=== PATIENT | male | born 1990 | race Two or more races ===

== ENCOUNTER 2023-01-31 05:18 | Emergency (ER) | payer SELFPAY ==
[2023-01-31 05:33] VITALS: BP 140/90; PULSE 89; RESP 16; TEMP 36.7; O2SAT 96; BMI 50.2
--- NOTE | 2023-01-31 05:51 | CT_ITS ---
[address] [address] Patient Name: LOLA DENT MRN: [id number] date: 1990 Sex: M Assigned Patient Location: ER Current Patient Location: Accession/Order Number: [id number] Exam Date: 01/31/2023 06:00 Report Date: 01/31/2023 06:42 At the request of: ANNA CHANEY Procedure: CT abdomen pelvis wo con EXAMINATION: CT abdomen pelvis wo con HISTORY: left flank pain, r/o stone ; acute left flank pain, nausea and vomiting COMPARISON: No relevant comparison available. TECHNIQUE: Axial, Coronal, and Sagittal images were obtained without and/or with IV contrast as indicated by examination type. Dose reduction techniques were achieved by using automated exposure control and/or adjustment of mA and/or kV according to patient size and/or use of iterative reconstruction technique. FINDINGS: LUNG BASES: No visible pulmonary or pleural disease. LIVER: No enlargement, atrophy, suspicious density, or significant focal lesion. BILIARY: No dilatation or calcification. PANCREAS: No lesion, fluid collection, or abnormal duct dilatation. SPLEEN: No enlargement or focal lesion. ADRENALS: No mass or enlargement. KIDNEYS: No mass, obstruction, or calcification. BOWEL/MESENTERY: No visible mass, obstruction, or bowel wall thickening. AORTA/VASCULAR: No aneurysm or dissection. RETROPERITONEUM: No mass or adenopathy. LYMPH NODES: No adenopathy. URINARY BLADDER: 3 mm stone within urinary bladder. PELVIC ORGANS: No visible mass. Pelvic organs appropriate for patient age. ABDOMINAL WALL: No mass or hernia. BONES: No bony lesion or fracture. OTHER: Negative. CT/CT abdomen pelvis wo con IMPRESSION: 1. Within the urinary bladder is a 3 mm stone; possibly recent passage through the ureter. 2. Unremarkable kidneys and ureters. 3. Unremarkable bowel and appendix. Electronically authenticated by: CAROLINE KENDRICK Date: 01/31/2023 06:42
--- NOTE | 2023-01-31 05:52 | ED.GENADUL1 ---
HPI - General Adult General Chief complaint: Back Pain/Injury Stated complaint: RIGHT LOWER BACK PAIN Time Seen by Provider: 01/31/23 05:48 History of Present Illness HPI narrative: 32-year-old male presents for left lower back pain. He was laying on the couch and it started spontaneously. There is no injury or unusual activity. He points to the left flank and to the left lateral abdomen to indicate area of pain. No pain on the right. No dysuria or hematuria and the pain has greatly subsided now. He has no history of kidney stone. Related Data Home Medications Medication Instructions Recorded Confirmed fluoxetine 10 mg capsule mg 01/31/23 sumatriptan succinate 50 mg tablet mg PO 01/31/23 topiramate 25 mg tablet mg 01/31/23 Allergies Allergy/AdvReac Type Severity Reaction Status Date / Time bananas Allergy Severe Uncoded 01/31/23 05:37 Review of Systems ROS Narrative A ten point review of systems is negative except as noted above. PFSH PFSH Social History Smoking status: Current some day smoker Exam Narrative Exam Narrative: Nurses note and vital signs reviewed and patient is not hypoxic. General: The patient appears well and in no apparent distress. Patient is resting comfortably on cart. Skin: Warm, dry, no pallor noted. There is no rash noted. Head: Normocephalic, atraumatic Eye: Normal conjunctiva, no drainage Ears, Nose, Mouth, and Throat: oral mucosa is moist. Nares patent. Cardiovascular: Regular Rate and Rhythm Respiratory: Patient is in no distress, no accessory muscle use, lungs are clear to auscultation, no wheezing, rales or rhonchi Back: non-tender, no CVA tenderness bilaterally to percussion. no bruise or rash on his back. GI: obese and nontender Musculoskeletal: The patient has no evidence of calf tenderness, no pitting edema, symmetrical pulses noted bilaterally Neurological: A&O, normal speech Psychiatric: Cooperative Constitutional Vital Signs, click to edit/add: Last Vital Signs Temp 98.1 F 01/31/23 05:33 Pulse 89 01/31/23 05:33 Resp 16 01/31/23 05:33 BP 140/90 01/31/23 05:33 Pulse Ox 96 01/31/23 05:33 Course Vital Signs Vital signs: Vital Signs Temperature 98.1 F 01/31/23 05:33 Pulse Rate 89 1202/23 05:33 Respiratory Rate 16 01/31/23 05:33 Blood Pressure 140/90 01/31/23 05:33 Pulse Oximetry 96 01/31/23 05:33 Temperature 98.1 F 01/31/23 05:33 Pulse Rate 89 01/31/23 05:33 Respiratory Rate 16 01/31/23 05:33 Blood Pressure 140/90 01/31/23 05:33 Pulse Oximetry 96 01/31/23 05:33 Medical Decision Making MDM Narrative Medical decision making narrative: 3 mm stone is identified in his urinary bladder. He is able to be discharged home and was given a urine strainer and a specimen cup and referred to urology. Treatment diagnosis and follow-up were discussed with the patient. Differential Diagnosis Differential Diagnosis: kidney stone, hydronephrosis Imaging Data CT scan - abdomen: Radiologist's impression: Procedure: CT abdomen pelvis wo con EXAMINATION: CT abdomen pelvis wo con HISTORY: left flank pain, r/o stone ; acute left flank pain, nausea and vomiting COMPARISON: No relevant comparison available. TECHNIQUE: Axial, Coronal, and Sagittal images were obtained without and/or with IV contrast as indicated by examination type. Dose reduction techniques were achieved by using automated exposure control and/or adjustment of mA and/or kV according to patient size and/or use of iterative reconstruction technique. FINDINGS: LUNG BASES: No visible pulmonary or pleural disease. LIVER: No enlargement, atrophy, suspicious density, or significant focal lesion. BILIARY: No dilatation or calcification. PANCREAS: No lesion, fluid collection, or abnormal duct dilatation. SPLEEN: No enlargement or focal lesion. ADRENALS: No mass or enlargement. KIDNEYS: No mass, obstruction, or calcification. BOWEL/MESENTERY: No visible mass, obstruction, or bowel wall thickening. AORTA/VASCULAR: No aneurysm or dissection. RETROPERITONEUM: No mass or adenopathy. LYMPH NODES: No adenopathy. URINARY BLADDER: 3 mm stone within urinary bladder. PELVIC ORGANS: No visible mass. Pelvic organs appropriate for patient age. ABDOMINAL WALL: No mass or hernia. BONES: No bony lesion or fracture. OTHER: Negative. IMPRESSION: 1. Within the urinary bladder is a 3 mm stone; possibly recent passage through the ureter. 2. Unremarkable kidneys and ureters. 3. Unremarkable bowel and appendix. Electronically authenticated by: CAROLINE KENDRICK Date: 01/31/2023 06:42 Discharge Plan Discharge Chief Complaint: Back Pain/Injury Clinical Impression: Kidney stone Patient Disposition: Home, Self-Care Time of Disposition Decision: 06:49 Condition: Good Mode of Transportation: Private Vehicle Prescriptions / Home Meds: No Action sumatriptan succinate 50 mg tablet PO topiramate 25 mg tablet fluoxetine 10 mg capsule Instructions: Kidney Stones (ED) Additional Instructions: Follow-up with Dr. Lynn Stand Alone Forms: Portal Instructions Referrals: Mindi Jorgensen NP [Primary Care Provider] - 1 week
== END 2023-01-31 07:17 | disposition home or self-care (01) ==
PROVIDERS: Emergency Provider Emergency Medicine; PCP Nurse Practitioner
DX: N20.0 Calculus of kidney (principal); Z79.899 Other long term (current) drug therapy; F17.210 Nicotine dependence, cigarettes, uncomplicated
CPT/HCPCS: 74176; 81001; 99284

== ENCOUNTER 2023-07-21 21:01 | Emergency (ER) | payer SELFPAY ==
[2023-07-21 21:05] VITALS: BP 149/98; PULSE 104; TEMP 36.7; O2SAT 98; BMI 48.8
--- OUTSIDE RECORDS SUMMARY | 2023-07-21 21:08 | XMS_ITS | CCD ---
Author Organization [facility] Care Team Providers Care Client Experience Specialist Name Role Phone TIM, DR YAÑEZ Primary Care Unavailable JOSE COX Admitting Unavailable JOSE COX Attending Unavailable CRISTOBAL SCHMITT Consulting Unavailable TIM, DR YAÑEZ Primary Care Unavailable PAY, DR DAVIS Admitting Unavailable PAY, DR DAVIS Attending Unavailable ZIEBER, DR CAROLINE Lake Consulting Unavailable PAY, DR DAVIS Consulting Unavailable CRISTOBAL OSBORNE Consulting Unavailable JOSE COX Admitting Unavailable JOSE COX Attending Unavailable TIM, DR YAÑEZ Primary Care Unavailable CRISTOBAL SCHMITT Consulting Unavailable Lora Bermeo Unavailable PEÑA CHOU Attending Unavailable Bin Dumont Primary Care Unavailable Lora Bermeo Attending Unavailable Lora Bermeo Admitting Unavailable Medications Current Medications Medication Drug Class(es) Dates Sig (Normalized) Sig (Original) FLUoxetine 10 mg oral capsule (1 source) Serotonin Reuptake Inhibitor FLUoxetine HCl 10 MG Oral for 30 Days Active SUMAtriptan 50 mg oral tablet (1 source) Serotonin-1b and Serotonin-1d Receptor Agonist SUMAtriptan Succinat e 50 MG Oral for 30 Days Active topiramate 25 mg oral tablet (1 source) Topiramate 25 MG Oral for 30 Days Active Completed/Discontinued Medications Medication Drug Class(es) Dates Sig (Normalized) Sig (Original) ondansetron 4 mg oral tablet (2 sources) Serotonin-3 Receptor Antagonist Start: 2021 take 1 tablet by mouth three times daily as needed for nausea Zofran 4 MG 1 tablet Orally 3 times a day prn As needed nausea Aug, Not-Taking/PRN Problems Active Problems Problem Classification Problem Date Documented Da te Episodic/Chronic Other ear and sense organ disorders (1 source) Other otitis externa, right ear; Translations: [OTHER OTITIS EXTERNA RIGHT EAR] Onset: 10-09-2020 Chronic Sprains and strains (1 source) Strain of unspecified muscle, fascia and tendon at shoulder and upper arm level, left arm, initial encounter Episodic Unclassified (1 source) Pain in left shoulder; Translations: [Pain in left shoulder] Onset: 03-27-2023 Past or Other Problems Problem Classification Problem Date Documented Da te Episodic/Chronic Immunizations and screening for infectious disease (1 source) Contact with and (suspected) exposure to other viral communicable diseases Onset: 2021 Resolved: 2021 Episodic Nausea and vomiting (1 source) Nausea with vomiting, unspecified Onset: 2021 Resolved: 2021 Episodic Other ear and sense organ disorders (4 sources) Otalgia, right ear; Translations: [OTALGIA RIGHT EAR] Onset: 10-07-2020 Episodic Other ear and sense organ disorders (1 source) Unspecified acute noninfective otitis externa, right ear; Translations: [UNS AC NONINFECT OTITIS EXTERNA RT] Onset: 10-09-2020 Episodic Other gastrointestinal disorders (1 source) Diarrhea, unspecified Onset: 2021 Resolved: 2021 Episodic Other nervous system disorders (1 source) Atypical facial pain; Translations: [ATYPICAL FACIAL PAIN] Onset: 10-09-2020 Episodic Results Test Name Value Interpretation Reference Range Facil ity XR shoulder LT min 2V*on XR shoulder LT min 2V* [facility] [place] [address] XRay Report Signed Patient: Benji Cox V MR#: [id number] : 1990 Acct:[id number] Age/Sex: 32 / M ADM Date: 03/27/23 Loc: XDUCLY Room: Type: [facility] Attending Dr: Lora ZAVALA Copies to: SALLY Nye Ordering Provider: SALLY Nye Date of Service: 03/27/23 XR/XR shoulder LT min 2V*: LEFT SHOULDER PAIN XR shoulder LT min 2V* 03/27/2023 12:21 PM SIGNS AND SYMPTOMS: Pain in left shoulder PROTOCOL: Frontal, Grashey, and scapular Y views of the left shoulder COMPARISON: None FINDINGS: Glenohumeral joint and acromioclavicular joint are preserved. There is no evidence of fracture or dislocation. The visualized left hemithorax is grossly intact. XR/XR shoulder LT min 2V* IMPRESSION: No fracture, dislocation, or significant degenerative change. Impression dictated by: Elieser Benitez M.D.03/27/2023 12:49 PM Dictation Location: [place] [address] Transcribed By: [facility] 03/27/23 1249 Dictated By: Elieser Benitez II, MD 03/27/23 124 Signed By: 03/27/23 124 [facility] COVID Quick Testingon 2021 Result Negative [facility] Other CT FOOT LT WO CONon 05-23-19 CT FOOT LT WO CON EXAMINATION: CT FOOT LT WO CON HISTORY: Injury of foot ; acute left calcaneal pain after falling COMPARISON: No relevant comparison available. TECHNIQUE: Multi-planar CT images were created without IV contrast. Dose reduction techniques were achieved by using automated exposure control and/or adjustment of mA and/or kV according to patient size and/or use of iterative reconstruction technique. FINDINGS: BONES: Fracture of the calcaneal plantar spur with mild cephalad angulation of the tip. No fracture of the body of the calcaneus or remainder of the foot. No dislocation or bone lesion. SOFT TISSUES: No visible soft tissue swelling. EFFUSION: None visible. OTHER: Negative. IMPRESSION: 1. Minimally displaced fracture of the calcaneal plantar spur. No fracture of the calcaneus itself. 2. No appreciable significant soft tissue swelling or disruption of the plantar aponeurosis. Electronically authenticated by: CAROLINE KENDRICK Date: 2021-05-22 14:52 Normal [facility] Vital Signs Date Time Vital Sign Value Performing Clinician Facility 03-27-2023 11:30-0500 Body height 181.61 cm Lora Jiménezmond Other [facility] Other 03-27-2023 11:30-0500 Body mass index (BMI) [Ratio] 51.15 kg/m2 Lora Elvie Other [facility] Other 03-27-2023 11:30-0500 Body temperature 98.4 [degF] Lora Elvie Other [facility] Other 03-27-2023 11:30-0500 Body weight 168.74 kg Lora Elvie Other [facility] Other 03-27-2023 11:30-0500 Respiratory rate 18 /min Lora Elvie Other [facility] Other 03-27-2023 11:30-0500 SaO2% (BldA) [Mass fraction] 96 % Lora Elvie Other [facility] Other 2021 13:30-0400 Body height 180.34 cm Lora Elvie Other [facility] Other 2021 13:30-0400 Body mass index (BMI) [Ratio] 44.63 kg/m2 Lora Elvie Other [facility] Other 2021 13:30-0400 Body temperature 98.1 [degF] Lora Elvie Other [facility] Other 2021 13:30-0400 Body weight 145.15 kg Lora Elvie Other [facility] Other 2021 13:30-0400 Respiratory rate 18 /min Lora Elvie Other [facility] Other 2021 13:30-0400 SaO2% (BldA) [Mass fraction] 96 % Lora Bermeo Other [facility] Other Encounters Encounter Date Encounter Type Care Provider Facility Start: 03-27-2023 End: 03-27-2023 ambulatory Bin Dumont Facility:[facility] Start: 03-27-2023 Office outpatient visit 15 minutes Lora Bermeo [facility] Start: 02-11-2023 End: 02-11-2023 ambulatory PEÑA CHOU Not Available Start: 2021 End: 2021 ambulatory Lora Bermeo Other [facility] Other Start: 2021 Office outpatient visit 25 minutes Lora Bermeo [facility] Start: 05-22-2021 End: 05-22-[address] BIN DUMONT Facility:[facility] Start: 10-07-2020 End: 10-07-[address] BIN DUMONT Facility:[facility] Start: 10-05-2020 End: 10-05-2020 ambulatory JOSE COX Facility:[facility] Payers Date Payer Category Payer Private Health Insurance [id number] 2022 Private Health Insurance [id number] 1990 Unknown [id number] 1990 Unknown [id number] 1990 Unknown [id number] [id number] 1990 Unknown [id number] 1959 Self-pay 1959 Unknown [id number] [facility] [id number] Unknown [id number] [id number] Social History Date Type Detail Facility Sex Assigned At [facility] Other Evaluation note 03-27-2023 Note Date & Type Note Facility 03-27-2023 Evaluation note Encounter Date Diagnosis Assessment Notes Mar, Strain of left shoulder, initial encounter (ICD-10 - S46.912A) Take Tylenol or Motrin as needed for pain. Ice to your shoulder 2-3 times a day. Rest your shoulder. Wear sling for no more than 2 days for comfort and support. Follow-up with your primary care physician or orthopedic physician if no improvement in 5 to 7 days. [facility] Other Evaluation note 2021 Note Date & Type Note Facility 2021 Evaluation note Encounter Date Diagnosis Assessment Notes Aug, Contact with and (suspected) exposure to other viral communicable diseases (ICD-10 - Z20.828) Aug, Nausea and vomiting, unspecified vomiting type (ICD-10 - R11.2) Nausea and vomiting: adult material was printed Drink plenty fluids, get plenty of rest. Take Zofran as needed for nausea and vomiting. Consider taking [id number] nter Imodium as needed for diarrhea. Follow-up with your family physician if no improvement in 2 to 3 days. Off work today and tomorrow Aug, Diarrhea, unspecified type (ICD-10 - R19.7) [facility] Other Clinical Note 05-22-2021 Note Date & Type Note Facility 05-22-2021 Note PROCEDURE: XR FOOT L T MIN 3 VIEWS HISTORY: Injury of foot ; acute left calcaneus pain after falling COMPARISON: None. FINDINGS: BONES:Lucency at the base of the calcaneal plantar spur with the tip of a spur directed slightly cephalad. Unremarkable appearance of the remaining bones of the foot. SOFT TISSUES:No visible soft tissue swelling. EFFUSION:None visible. OTHER: Negative. IMPRESSION: 1. Suspect acute fracture of the calcaneal plantar spur. Electronically authenticated by: CAROLINE KENDRICK Date: 2021-05-22 13:53 [facility] History general Narrative - Reported Note Date & Type Note Facility History general Narrative - Reported Type Medical History Migraine headache [facility] Other Summary Purpose Family History No Family History Records FoundNo Family History Records FoundNo Family History Records Found Advance Directives No Advanced Directives Records FoundNo Advanced Directives Records FoundNo Advanced Directives Records Found Additional Source Comments (unrecognized sect ion and content) No Status Records FoundNo Status Records FoundNo Status Records Found INFORMATION SOURCE (unrecogn ized section and content) DATE CREATED AUTHOR 05/23/2021 [facility] DATE CREATED AUTHOR AUTHOR'S ORGANIZ ATION 02/13/[address] [facility] EPIC DATE CREATED AUTHOR AUTHOR'S ORGANIZ ATION 04/03/2023 [facility] REASON FOR VISIT (unrecogniz ed section and content) [employer], N/V, LOOSE S TOOL, FATIGUE, CHILLS, FEVERSHOULDER PAIN FOR RECORDS PERTAINING TO PATIENTS WHO ARE OR HAVE BEEN ENROLLED IN A CHEMICAL DEPENDENCY/SUBSTANCEABUSE PROGRAM, SOME INFORMATION MAY BE OMITTED. This clinical summary was aggregated from multiple sources. Caution should be exercised in using it in the provision of clinical care. This summary normalizes information from multiple sources, and as a consequence, information in this document may materially change the coding, format and clinical context of patient data. In addition, data may be omitted in some cases. CLINICAL DECISIONS SHOULD BE BASED ON THE PRIMARY CLINICAL RECORDS. [employer] provides no warranty or guarantee of the accuracy or completeness of information in this document.
--- NOTE | 2023-07-21 21:18 | ED.GENADUL1 ---
HPI HPI - General Adult General Chief complaint: Ear Stated complaint: Earache Time Seen by Provider: 07/21/23 21:09 Source: patient Mode of arrival: walk-in History of Present Illness HPI narrative: Patient is a 32-year-old male who presents to the emergency department for right ear pain. He was seen at urgent care yesterday and diagnosed with right otitis media. He was placed on amoxicillin and Ciprodex. He states today his pain is uncontrolled in the right side of the face radiating into the jaw. There has been no drainage from the ear. He has not had any fevers or vomiting. He has no other upper respiratory symptoms. There has been no purulence or Blood from the right external canal. He feels as though the right side of his face in front of the ear is swollen. Related Data Home Medications ?Medication ?Instructions ?Recorded ?Confirmed fluoxetine 10 mg capsule mg 01/31/23 sumatriptan succinate 50 mg tablet mg PO 01/31/23 topiramate 25 mg tablet mg 01/31/23 Previous Rx's ?Medication ?Instructions ?Recorded amoxicillin 875 mg-potassium 1 tab PO Q12H #20 tabs 07/21/23 clavulanate 125 mg tablet hydrocodone 5 mg-acetaminophen 325 1 tab PO Q6H PRN pain 3 days #12 07/21/23 mg tablet tabs ketorolac 10 mg tablet 10 mg PO TID PRN pain #10 tabs 07/21/23 Allergies Allergy/AdvReac Type Severity Reaction Status Date / Time bananas Allergy Severe Uncoded 01/31/23 05:37 Opioid HPI Opioid Management Most Recent Opioid Data: No Data to Display Review of Systems ROS Constitutional Denies: fever or chills Ears, nose, mouth, and throat Reports: ear pain; Denies: throat pain, ear discharge or nasal congestion Respiratory Denies: shortness of breath or cough Gastrointestinal Denies: nausea or vomiting Integumentary/Breast Denies: rash Hematologic/Lymphatic Denies: easy bruising or easy bleeding Allergic/Immunologic Denies: hives PFSH PFSH Social History Smoking status: Current some day smoker Exam Narrative Exam Narrative: Gen.: Awake, alert, in no distress Head: Normocephalic, atraumatic ENT: Moist mucous membranes, Right external canal is edematous with minimal drainage. TM is not visualized due to swelling in the right external canal. Right tragus is edematous. No other facial swelling noted.Left TM is clear Respiratory: No respiratory distress Extremities: Moves extremities equally Psych: Normal mood and affect Neuro: No focal neuro deficit Skin: Warm, dry, intact Constitutional Vital Signs, click to edit/add: Last Vital Signs Temp 98.1 F 07/21/23 21:05 Pulse 104 H 07/21/23 21:05 Resp 18 07/21/23 21:05 BP 149/98 H 07/21/23 21:05 Pulse Ox 98 07/21/23 21:05 O2 Del Method Room Air 07/21/23 21:05 Course Vital Signs Vital signs: Vital Signs Temperature 98.1 F 07/21/23 21:05 Pulse Rate 104 H 07/21/23 21:05 Respiratory Rate 18 07/21/23 21:05 Blood Pressure 149/98 H 07/21/23 21:05 Pulse Oximetry 98 07/21/23 21:05 Oxygen Delivery Method Room Air 07/21/23 21:05 Temperature 98.1 F 07/21/23 21:05 Pulse Rate 104 H 07/21/23 21:05 Respiratory Rate 18 07/21/23 21:05 Blood Pressure 149/98 H 07/21/23 21:05 Pulse Oximetry 98 07/21/23 21:05 Oxygen Delivery Method Room Air 07/21/23 21:05 Medical Decision Making MDM Narrative Medical decision making narrative: Patient treated for pain with Bittinger and Toradol for home. Exam is consistent with right otitis externa and he is switched to Augmentin for better coverage as well as encouraged to use the Ciprodex drops more frequently. His exam is otherwise benign in the ER. Follow-up PCP and return to the ER if symptoms change or worsen Medical Records Medical records reviewed: Yes I reviewed the patient's medical records Discharge Plan Discharge Stand Alone Forms: Portal Instructions Chief Complaint: Ear Clinical Impression: Otitis externa, Earache on right Patient Disposition: Home, Self-Care Time of Disposition Decision: 21:15 Condition: Good Mode of Transportation: Private Vehicle Prescriptions / Home Meds: New hydrocodone-acetaminophen 5-325 mg tablet 1 tab PO Q6H PRN (Reason: pain) 3 Days Qty: 12 0RF Rx Instructions: DX: H92.01 ketorolac 10 mg tablet 10 mg PO TID PRN (Reason: pain) Qty: 10 0RF amoxicillin-pot clavulanate 875-125 mg tablet 1 tab PO Q12H Qty: 20 0RF No Action sumatriptan succinate 50 mg tablet PO topiramate 25 mg tablet fluoxetine 10 mg capsule Print Language: Kinyarwanda Instructions: Swimmer's Ear (ED), Earache (ED) Additional Instructions: Please stop amoxicillin and start augmentin; Bittinger and ketorolac for pain Please use CiproDex drops - 3 drops in right ear, 3 times a day for 7 days Referrals: Mindi Jorgensen [employer] [Primary Care Provider] - 1 week Discharge Date/Time: 07/21/23 21:33
[2023-07-21] MEDS: KETOROLAC TROMETHAMINE 10 MG TABLET PO (21:26)
[2023-07-21] MEDS: AMOXICILLIN/POTASSIUM CLAV 1 TAB TABLET PO (21:26)
[2023-07-21] MEDS: HYDROCODONE/ACET 5-325 MG TABLET 2 TAB PO (21:27)
--- NOTE | 2023-07-21 21:32 | PC.NURSE ---
dx w/ ear infection by urgent care and currently has ATB ear drops at home.
== END 2023-07-21 21:33 | disposition home or self-care (01) ==
PROVIDERS: Emergency Provider Internal Medicine; PCP Nurse Practitioner
DX: H60.91 Unspecified otitis externa, right ear (principal); H92.01 Otalgia, right ear; Z79.899 Other long term (current) drug therapy; F17.210 Nicotine dependence, cigarettes, uncomplicated
CPT/HCPCS: 99284

== ENCOUNTER 2024-05-17 08:09 | Emergency (ER) | payer OTHER, SELFPAY ==
[2024-05-17 08:14] VITALS: BP 144/85; PULSE 113; TEMP 38.1; O2SAT 96; BMI 50.9
[2024-05-17 08:15] VITALS: O2SAT 96
--- NOTE | 2024-05-17 08:24 | ED_ITS ---
HPI HPI - General Adult General Chief complaint: Upper Respiratory Infection Stated complaint: COUGHING FEVER CHILLS Time Seen by Provider: 05/17/24 08:17 Source: patient Mode of arrival: walk-in Limitations: no limitations History of Present Illness HPI narrative: The patient is coming to the ER with a cough that been going on at least for the last 2 weeks, he mentioned that [id number] medication did not help him, the patient also had his daughter at home was sick and taking antibiotic for possible infection as well although he did not specify which one it is, the patient denies any shortness of breath but he have cough that is nagging cough and that is most concerning. Congestion also another concern of the patient there is no nausea vomiting or any abdominal pain Related Data Home Medications ?Medication ?Instructions ?Recorded ?Confirmed fluoxetine 10 mg capsule mg 01/31/23 sumatriptan succinate 50 mg tablet mg PO 01/31/23 topiramate 25 mg tablet mg 01/31/23 Previous Rx's ?Medication ?Instructions ?Recorded amoxicillin 875 mg-potassium 1 tab PO Q12H #20 tabs 07/21/23 clavulanate 125 mg tablet hydrocodone 5 mg-acetaminophen 325 1 tab PO Q6H PRN pain 3 days #12 07/21/23 mg tablet tabs ketorolac 10 mg tablet 10 mg PO TID PRN pain #10 tabs 07/21/23 amoxicillin 875 mg-potassium 1 tab PO BID #14 tabs 05/17/24 clavulanate 125 mg tablet azithromycin 250 mg tablet See Rx Instructions PO .COMPLEX #6 05/17/24 (Zithromax Z-Ramu) tabs benzonatate 100 mg capsule 100 mg PO TID PRN cough #20 caps 05/17/24 prednisone 50 mg tablet 50 mg PO DAILY 5 days #5 tabs 05/17/24 Allergies Allergy/AdvReac Type Severity Reaction Status Date / Time bananas Allergy Severe Uncoded 01/31/23 05:37 Opioid HPI Opioid Management Most Recent Opioid Data: No Data to Display Review of Systems ROS Status of ROS 10 or more systems reviewed and unremark able except as noted in history and below PFSH PFSH Social History Smoking status: Current some day smoker Exam Narrative Exam Narrative: Nurses notes and vital signs reviewed and patient is not hypoxic. General: Well-appearing and in no apparent distress. Skin: Warm, dry, no pallor noted. No rash. Head: Normocephalic, atraumatic. Neck: Supple, non-tender. Eye: Pupils are equal, round and EOMI. No scleral icterus. Ears, Nose, Mouth, and Throat: TM are clear, no nasal mucosal hypertrophy. Oral mucosa is moist, no posterior oropharynx erythema, uvula is mid-line Cardiovascular: Regular Rate and Rhythm without murmur, gallop or rub. Respiratory: Rhonchi heard but no wheezing, there is distant airway on both sides of the lung Musculoskeletal: normal ROM, no calf or popliteal tenderness, no lower extremity edema/swelling GI: Abdomen is soft, non-distended. Normal bowel sounds. No masses appreciated. No tenderness to palpation. No rebound, guarding, or rigidity noted. Neurological: A&O x4. No cranial nerve dysfunction observed. No truncal ataxia. Moves all extremities. Sensation intact. Psychiatric: Cooperative and interactive. Normal mood and affect. Constitutional Vital Signs, click to edit/add: Last Vital Signs Temp 100.5 F H 05/17/24 08:14 Pulse 127 H 05/17/24 08:50 Resp 18 05/17/24 08:14 BP 144/85 H 05/17/24 08:14 Pulse Ox 97 05/17/24 08:50 O2 Del Method Room Air 05/17/24 08:50 Course Vital Signs Vital signs: Vital Signs Temperature 100.5 F H 05/17/24 08:14 Pulse Rate 113 H 05/17/24 08:14 Respiratory Rate 18 05/17/24 08:14 Blood Pressure 144/85 H 05/17/24 08:14 Pulse Oximetry 96 05/17/24 08:14 Oxygen Delivery Method Room Air 05/17/24 08:14 Temperature 100.5 F H 05/17/24 08:14 Pulse Rate 127 H 05/17/24 08:50 Respiratory Rate 18 05/17/24 08:14 Blood Pressure 144/85 H 05/17/24 08:14 Pulse Oximetry 97 05/17/24 08:50 Oxygen Delivery Method Room Air 05/17/24 08:50 Medical Decision Making MDM Narrative Medical decision making narrative: The patient presentation is highly suspicious of pneumonia especially with him not getting better for the last 2 weeks and started to have fever The patient chest x-ray although showing no acute pathology still not a good penetration and apparently with the patient morbidly obese having BMI of 50 chest x-ray I do not think will rule out pneumonia still at the clinically the patient presentation is highly suspicious of it The patient was treated in the ER with a breathing treatment improvement with coughing in addition to being discharged after being provided with prednisone He will be covered for community-acquired pneumonia with azithromycin and Augmentin The patient is to follow up with primary care physician in next 2-3 days or to return to the emergency department should any of the signs or symptoms worsen or new symptoms develop. The patient agrees with the following Diagnosis and Treatment plan and the patient will be discharged home. Discharge Plan Discharge Chief Complaint: Upper Respiratory Infection Clinical Impression: Pneumonia Patient Disposition: Home, Self-Care Time of Disposition Decision: 08:47 Condition: Good Prescriptions / Home Meds: New prednisone 50 mg tablet 50 mg PO DAILY 5 Days Qty: 5 0RF benzonatate 100 mg capsule 100 mg PO TID PRN (Reason: cough) Qty: 20 0RF azithromycin [Zithromax Z-Ramu] 250 mg tablet See Rx Instructions .ROUTE .COMPLEX Qty: 6 0RF Rx Instructions: For 250 mg dose pack: take 500 mg today (day 1), then 250 mg for 4 days (days 2-5) amoxicillin-pot clavulanate 875-125 mg tablet 1 tab PO BID Qty: 14 0RF No Action sumatriptan succinate 50 mg tablet PO topiramate 25 mg tablet fluoxetine 10 mg capsule hydrocodone-acetaminophen 5-325 mg tablet 1 tab PO Q6H PRN (Reason: pain) 3 Days Qty: 12 0RF Rx Instructions: DX: H92.01 ketorolac 10 mg tablet 10 mg PO TID PRN (Reason: pain) Qty: 10 0RF amoxicillin-pot clavulanate 875-125 mg tablet 1 tab PO Q12H Qty: 20 0RF Print Language: Swedish Instructions: Community Acquired Pneumonia (DC) Referrals: Mindi Jorgensen, [facility] [Primary Care Provider] - 1 week
[2024-05-17] MEDS: PREDNISONE 20 MG TABLET 40 MG PO (08:38)
[2024-05-17] MEDS: AZITHROMYCIN 250 MG TABLET 500 MG PO (08:41)
[2024-05-17] MEDS: IPRATROPIUM/ALBUTEROL SULFATE 3 ML AMPUL.NEB IH (08:49)
[2024-05-17 08:50] VITALS: PULSE 127; O2SAT 97
== END 2024-05-17 09:01 | disposition home or self-care (01) ==
PROVIDERS: Emergency Provider Emergency Medicine; PCP Nurse Practitioner
DX: J18.9 Pneumonia, unspecified organism (principal); F17.200 Nicotine dependence, unspecified, uncomplicated; R50.9 Fever, unspecified
CPT/HCPCS: 71045; 94640; 99284; J7512

== ENCOUNTER 2024-05-20 08:13 | Emergency (ER) | payer OTHER, SELFPAY ==
[2024-05-20 08:16] VITALS: BP 145/91; PULSE 119; TEMP 37.3; O2SAT 97; BMI 50.2
--- NOTE | 2024-05-20 08:23 | ECG_ITS ---
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 Measurements Intervals [place] Rate: 113 P: -55 MD: 116 QRS: -58 QRSD: 96 T: -2 QT: 308 QTc: 375 Interpretive Statements Ectopic atrial tachycardia 2210 Short MD interval 2420 RSR (QR) in lead V1/V2, consistent with right ventricular conduction delay 2630 Left anterior fascicular block 4068 Nonspecific [place] abnormality 9150 abnormal ECG No previous ECG available for comparison Electronically Signed On 05-20-2024 17:38:29 EDT by ALEX PONCE M.D.
--- OUTSIDE RECORDS SUMMARY | 2024-05-20 08:37 | XMS_ITS | CCD ---
Author Organization [facility] CliniSyfl Care Team Providers Care Textile Broker Name Role Phone TIM, DR YAÑEZ Primary Care Unavailable JOSE COX Admitting Unavailable JOSE COX Attending Unavailable CRISTOBAL SCHMITT Consulting Unavailable TIM, DR YAÑEZ Primary Care Unavailable PAY, DR DAVIS Admitting Unavailable PAY, DR DAVIS Attending Unavailable ZIEBER, DR CAROLINE Lake Consulting Unavailable PAY, DR DAVIS Consulting Unavailable DYLON, CRISTOBAL PETERSON Consulting Unavailable JOSE COX Admitting Unavailable JOSE COX Attending Unavailable TIM, DR YAÑEZ Primary Care Unavailable CRISTOBAL SCHMITT Consulting Unavailable Lora Bermeo Unavailable MINDI JORGENSEN Attending Unavailable Bin Dumont Primary Care Unavailable Lora Bermeo Attending Unavailable Lora Bermeo Admitting Unavailable Joslyn WILLIAMSON, Mindi Unavailable Rick Villalobos MD Primary Care Provider MINDI JORGENSEN Primary Care Unavailable BONNY MINER Attending Unavailable Allergies Allergy Classification Reported Allergen(s) Allergy Type Date of Onset Reaction(s) Facility (3 sources) Other Propensity to adverse reactions 3 [facility] (1 source) Banana Extract Drug Allergy 5 Anaphylaxis [facility] Medications Current Medications Medication Drug Class(es) Dates Sig (Normalized) Sig (Original) [id number] 200 actuat albuterol 0.09 mg/actuat metered dose inhaler (3 sources) beta2-Adrenergic Agonist take 2 puff(s) by inhalation every six hours for wheezing albuterol HFA 90 mcg/act inhaler Inhale 2 puffs every 6 (six) hours if needed for wheezing Active amoxicillin 875 mg / clavulanate 125 mg oral tablet (1 source) Penicillin-class Antibacterial Start: 05-16-2024 take 1 tablet by mouth every twelve hours Amoxicillin-Pot Clavulanate 875-125 mg tablet Active 1 TAB PO Every 12 hours 19 12May 16, 2024 12:00am Atogepant (Qulipta) 60 MG tablet (2 sources) Start: 11-26-2023 take 1 tablet by mouth once daily Atogepant (Qulipta) 60 MG tablet Indications: Migraine without aura and without status migrainosus, not intractable (CMS/HCC) Take 60 mg by mouth Daily 30 tablet 2 11/26/2023 Active ubrogepant 100 mg oral tablet (4 sources) Start: 11-26-2023 End: 12-26-2023 take 2 tablets by mouth every twenty-four hours as needed Ubrogepant (Ubrelvy) 100 MG tablet Indications: Migraine without aura and without status migrainosus, not intractable (CMS/HCC) Take 100 mg by mouth Daily as needed (migraine BERG) May take 1 at onset of migraine BERG, may repeat again in 2 hours if needed. No more than 2 pills in 24 hours 15 tablet 1 11/26/2023 12/26/2023 Active End: 11-26-2023 take 1 tablet by mouth every twenty-four hours as needed Ubrogepant (Ubrelvy) 100 MG tablet Take 100 mg by mouth Daily as needed (migraine BERG) 11/26/2023 Discontinued (Reorder) Completed/Discontinued Medications Medication Drug Class(es) Dates Sig (Normalized) Sig (Original) amoxicillin 500 mg oral capsule (1 source) Penicillin-class Antibacterial Start: 07-20-2023 End: 05-16-2024 take 1 capsule by mouth three times daily Amoxicillin 500 mg capsule Discontinued 500 MG PO Three times daily 19 09July 20, 2023 12:00am May 16, 2024 2:00pm Ciprofloxacin-Dexa methasone 0.3-0.1 % drops,suspension (1 source) Start: 07-20-2023 End: 05-16-2024 Ciprofloxacin-Dexa methasone 0.3-0.1 % drops,suspension Discontinued 4 DROPS OTIC Twice daily 7.5 July 20, 2023 12:00am May 16, 2024 2:00pm FLUoxetine 10 mg oral capsule (4 sources) Serotonin Reuptake Inhibitor End: 11-26-2023 take 1 capsule by mouth in the morning FLUoxetine (PROzac) 10 MG capsule Take 10 mg by mouth in the morning. 11/26/2023 Discontinued (Therapy completed) ondansetron 4 mg oral tablet (2 sources) Serotonin-3 Receptor Antagonist Start: 2021 take 1 tablet by mouth three times daily as needed for nausea Zofran 4 MG 1 tablet Orally 3 times a day prn As needed nausea Aug, Not-Taking/PRN SUMAtriptan 50 mg oral tablet (6 sources) Serotonin-1b and Serotonin-1d Receptor Agonist Start: 07-20-2023 End: 05-16-2024 Sumatriptan Succinate 50 mg tablet Discontinued MG PO July 20, 2023 12:00am May 16, 2024 2:06pm FreeTextSig: Oral; Note: Source Status: Taking; Qty: 9 Tablet; Provider: Elvie Paulino ( ) Start: 07-20-2023 Sumatriptan Curran ccinate Active MG PO July 20, 2023 12:00am FreeTextSig: Oral; Note: Source Status: Taking; Qty: 9 Tablet; Provider: Elvie Paulino ( ) End: 11-26-2023 SUMAtriptan (Imitrex) 50 MG tablet Take 50 mg by mouth 1 (one) time if needed for migraine May repeat dose once in 2 hours if no relief. Do not exceed 2 doses in 24 hours. 11/26/2023 Discontinued (Therapy completed) SUMAtriptan Succ inate 50 MG Oral for 30 Days Active topiramate 25 mg oral tablet (6 sources) Start: 07-20-2023 End: 05-16-2024 Topiramate 25 mg tablet Discontinued MG PO July 20, 2023 12:00am May 16, 2024 2:06pm FreeTextSig: Oral; Note: Source Status: Taking; Qty: 60 Tablet; Provider: Elvie Paulino ( ) Start: 07-20-2023 Topiramate Act cristian MG PO July 20, 2023 12:00am FreeTextSig: Oral; Note: Source Status: Taking; Qty: 60 Tablet; Provider: Elvie Paulino ( ) Problems Active Problems Problem Classification Problem Date Documented Da te Episodic/Chronic Anxiety disorders (5 sources) Mixed anxiety and depressive disorder; Translations: [Anxiety disorder, unspecified] Onset: 02-09-2023 11-26-2023 Chronic Asthma (3 sources) Mild intermittent asthma; Translations: [Mild intermittent asthma, uncomplicated] Onset: 02-04-2023 02-04-2023 Chronic Headache; including migraine (5 sources) Migraine without aura, not refractory ; Translations: [Migraine without aura, not intractable, without status migrainosus] Onset: 02-09-2023 11-26-2023 Chronic Influenza (1 source) Influenza Onset: 02-23-2024 Other ear and sense organ disorders (1 source) Other otitis externa, right ear; Translations: [OTHER OTITIS EXTERNA RIGHT EAR] Onset: 10-09-2020 Chronic Other nutritional; endocrine; and metabolic disorders (5 sources) Obesity caused by energy imbalance; Translations: [Morbid (severe) obesity due to excess calories] Onset: 02-11-2023 11-26-2023 Chronic Other nutritional; endocrine; and metabolic disorders (5 sources) Body mass index 40+ - severely obese; Translations: [Body mass index (BMI) 50.0-59.9, adult] Onset: 11-26-2023 11-26-2023 Chronic Other nutritional; endocrine; and metabolic disorders (4 sources) Excessive thirst; Translations: [Polydipsia] Onset: 11-26-2023 11-26-2023 Episodic Otitis media and related conditions (1 source) Acute right otitis media; Translations: [Otitis media, unspecified, right ear] 07-20-2023 Episodic Residual codes; unclassified (5 sources) Tobacco user; Translations: [Tobacco use] Onset: 02-11-2023 11-26-2023 Episodic Sprains and strains (1 source) Strain of unspecified muscle, fascia and tendon at shoulder and upper arm level, left arm, initial encounter Episodic Unclassified (1 source) Pain in left shoulder; Translations: [Pain in left shoulder] Onset: 03-27-2023 Unclassified (1 source) Cold Like Symptoms Onset: 02-23-2024 Viral infection (1 source) COVID-19; Translations: [COVID-19] Onset: 02-23-2024 Past or Other Problems Problem Classification Problem Date Documented Da te Episodic/Chronic Calculus of urinary tract (3 sources) Kidney stone; Translations: [Calculus of kidney] Onset: 02-05-2023 02-05-2023 Episodic Immunizations and screening for infectious disease (1 source) Contact with and (suspected) exposure to other viral communicable diseases Onset: 2021 Resolved: 2021 Episodic Nausea and vomiting (1 source) Nausea with vomiting, unspecified Onset: 2021 Resolved: 2021 Episodic Other connective tissue disease (3 sources) Heel pain; Translations: [Pain in left foot] Onset: 02-11-2023 02-11-2023 Episodic Other ear and sense organ disorders (3 sources) Otitis externa; Translations: [Unspecified otitis externa, unspecified ear] Onset: 02-04-2023 Resolved: 02-11-2023 02-11-2023 Chronic Other ear and sense organ disorders (4 [...] Translations: [ATYPICAL FACIAL PAIN] Onset: 10-09-2020 Episodic Residual codes; unclassified (3 sources) History of clinical finding in subject; Translations: [Personal history of other specified conditions] Onset: 02-11-2023 Resolved: 02-11-2023 02-11-2023 Episodic Viral infection (3 sources) Disease caused by 2019-nCoV; Translations: [COVID-19] Onset: 02-11-2023 Resolved: 02-11-2023 02-11-2023 Episodic Results Test Name Value Interpretation Reference Range Facil ity SARS/FLU A+B/RSV by NAAT/Mol [facility] 02-23-2024 SARS/FLU A+B/RSV by NAAT/Molecular FLU A PCR Negative (qualifier value) FLU B PCR Negative (qualifier value) RSV by PCR Negative (qualifier value) SARS CoV 2 Detected (qualifier value) NOTE The Xpert Xpress SARS-CoV-2/Flu/RSV Plus test is a rapid, multiplexed real-time RT-PCR test intended for the simultaneous qualitative detection and differentiation of SARS-CoV-2, influenza A, influenza B and respiratory syncytial virus (RSV) viral RNA from individuals suspected of respiratory viral infection consistent with COVID-19 by their healthcare provider. This test has not been validated in asymptomatic patients. The Xpert Xpress SARS-CoV-2 test is intended for use by qualified and trained operators who are performing tests using either Dayjet DX or YouTab systems and is limited to laboratories that meet the CLIA requirements to perform high and moderate complexity tests. The Xpert Xpress SARS-CoV-2/Flu/RSV Plus is only for use under the Food and Drug Administration's Emergency Use Authorization. Results are for the simultaneous detection and differentiation of SARS-CoV-2, influenza A, influenza B and RSV nucleic acids in clinical specimens. SARS-CoV-2, influenza A, influenza B and RSV RNA identified by this test are generally detectable in upper respiratory samples during the acute phase of infection. Positive results are indicative of the presence of the identified virus, but do not rule out bacterial infection or co-infection with other pathogens not detected by this test. Clinical correlation with patient history and other diagnostic information is necessary to determine patient infection status. The agent detected may not be the definite cause of disease. Negative results do not preclude SARS-CoV-2, influenza A, influenza B and RSV infection and should not be used as the sole basis for treatment or other patient management decisions. Negative results must be combined with clinical observations, patient history and epidemiological information. An Invalid result may occur with specimen-associated inhibition unable to be resolved with specimen repeat. Fact Sheet for Healthcare Providers: https://www.fda.gov/med ia/677012/download Fact Sheet for Patients: https://www.fda.gov/med ia/083973/download Normal [facility] Comment on above: Performed By: #### COVFLR #### [facility] ([id number]) [address] [place] [address], [place] [address] XR shoulder LT min 2V*on XR shoulder LT min 2V* [facility] Main [employer] [address] [place] [address] XRay Report Signed Patient: Benji Cox V MR#: [id number] : 1990 Acct:[id number] Age/Sex: 32 / M ADM Date: 03/27/23 Loc: XDUCLY Room: Type: [facility] Attending Dr: Lora ZAVALA Copies to: SALLY [...] Elieser Benitez M.D.03/27/2023 12:49 PM Dictation Location: [place] [address] Transcribed By: [facility] 03/27/23 1249 Dictated By: Elieser Benitez II, MD 03/27/231245 Signed By: 03/27/23 1249 [facility] COVID Quick Testingon 2021 Result Negative [employer] Other CT FOOT LT WO CONon 05-23-19 [...] by: CAROLINE KENDRICK Date: 2021-05-22 14:52 Normal [facility] Vital Signs Date Time Vital Sign Value Performing Clinician Facility 05-16-2024 14:03-0400 Body height 182.88 cm [facility] 05-16-2024 14:03-0400 Body mass index (BMI) [Ratio] 51.4 kg/m2 [facility] 05-16-2024 14:03-0400 Body temperature 98 [degF] [facility] 05-16-2024 14:03-0400 Body weight 171.91 kg [facility] 05-16-2024 14:03-0400 Diastolic blood pressure 89 mm[Hg] [facility] 05-16-2024 14:03-0400 Heart rate 101 /min [facility] 05-16-2024 14:03-0400 Respiratory rate 16 /min [facility] 05-16-2024 14:03-0400 SaO2% (BldA) [Mass fraction] 95 % [facility] 05-16-2024 14:03-0400 Systolic blood pressure 132 mm[Hg] [facility] 11-26-2023 14:51-0400 Body height 180.3 cm Mindi Jorgensen HUMAN ANATOMY TEACHER Work Phone: [facility] 11-26-2023 14:51-0400 Body mass index (BMI) [Ratio] 50.38 kg/m2 Mindi Jorgensen HUMAN ANATOMY TEACHER Work Phone: [facility] 11-26-2023 14:51-0400 Body temperature 98.49 [degF] Mindi Jorgensen HUMAN ANATOMY TEACHER Work Phone: [facility] 11-26-2023 14:51-0400 Body weight 163.84 kg Mindi Jorgensen HUMAN ANATOMY TEACHER Work Phone: [facility] 11-26-2023 14:51-0400 Diastolic blood pressure 88 mm[Hg] Mindi Ramosholz HUMAN ANATOMY TEACHER Work Phone: [facility] 11-26-2023 14:51-0400 Heart rate 87 /min Mindilatosha Ramosholz HUMAN ANATOMY TEACHER Work Phone: [facility] 11-26-2023 14:51-0400 Respiratory rate 19 /min Mindilatosha Ramosholz HUMAN ANATOMY TEACHER Work Phone: [facility] 11-26-2023 14:51-0400 SaO2% (BldA) [Mass fraction] 96 % Mindilatosha Ramosholz HUMAN ANATOMY TEACHER Work Phone: [facility] 11-26-2023 14:51-0400 Systolic blood pressure 136 mm[Hg] Mindi Richardholz HUMAN ANATOMY TEACHER Work Phone: [facility] 07-20-2023 11:56-0400 Body height 181.61 cm [facility] 07-20-2023 11:56-0400 Body mass index (BMI) [Ratio] 51.8 kg/m2 [facility] 07-20-2023 11:56-0400 Body temperature 98.6 [degF] [facility] 07-20-2023 11:56-0400 Body weight 171 kg [facility] 07-20-2023 11:56-0400 Diastolic blood pressure 87 mm[Hg] [facility] 07-20-2023 11:56-0400 Heart rate 96 /min [facility] 07-20-2023 11:56-0400 Respiratory rate 18 /min [facility] 07-20-2023 11:56-0400 SaO2% (BldA) [Mass fraction] 96 % [facility] 07-20-2023 11:56-0400 Systolic blood pressure 136 mm[Hg] [facility] 03-27-2023 11:30-0500 Body height 181.61 cm Lora Bermeo Other [employer] Other 03-27-2023 11:30-0500 Body mass index (BMI) [Ratio] 51.15 kg/m2 Lora Elvie Other [employer] Other 03-27-2023 11:30-0500 Body temperature 98.4 [degF] Lora Elvie Other [employer] Other 03-27-2023 11:30-0500 Body weight 168.74 kg Lora Elvie Other [employer] Other 03-27-2023 11:30-0500 Respiratory rate 18 /min Lora Elvie Other [employer] Other 03-27-2023 11:30-0500 SaO2% (BldA) [Mass fraction] 96 % Lora Elvie Other [employer] Other 2021 13:30-0400 Body height 180.34 cm Lora Elvie Other [employer] Other 2021 13:30-0400 Body mass index (BMI) [Ratio] 44.63 kg/m2 Lora Elvie Other [employer] Other 2021 13:30-0400 Body temperature 98.1 [degF] Lora Elvie Other [employer] Other 2021 13:30-0400 Body weight 145.15 kg Lora Elvie Other [employer] Other 2021 13:30-0400 Respiratory rate 18 /min Lora Elvie Other [employer] Other 2021 13:30-0400 SaO2% (BldA) [Mass fraction] 96 % Lora Bermeo Other [employer] Other Encounters Encounter Date Encounter Type Care Provider Facility Start: 05-16-2024 End: 05-16-2024 ambulatory [facility] Work Phone: Start: 05-16-2024 End: 05-16-2024 Patient encounter procedure [facility] Work Phone: Start: 02-23-2024 End: 02-23-2024 Emergency department patient visit MINDI JORGENSEN [facility] Start: 11-26-2023 End: 11-26-2023 Office outpatient visit 25 minutes Mindi Jorgensen HUMAN ANATOMY TEACHER Work Phone: [facility] Comment on above: Migraine without aur a and without status migrainosus, not intractable (CMS/HCC) (Primary Dx); Morbid (severe) obesity due to excess calories (CMS/HCC); Body mass index (BMI) 50.0-59.9, adult (CMS/HCC); Anxiety and depression (CMS/HCC); Tobacco user; Polydipsia Start: 11-26-2023 End: 11-26-2023 Bamboo flowsheet Mindi Jorgensen HUMAN ANATOMY TEACHER Work Phone: [facility] Start: 11-26-2023 End: 11-26-2023 Bamboo flowsheet Mindi Jorgensen HUMAN ANATOMY TEACHER Work Phone: [facility] Start: 07-20-2023 End: 07-20-2023 ambulatory [facility] Work Phone: Start: 07-20-2023 End: 07-20-2023 Patient encounter procedure [facility] Work Phone: Start: 03-27-2023 End: 03-27-2023 ambulatory Bin Dumont Facility:[facility] Start: 03-27-2023 Office outpatient vi sit 15 minutes Lora Bermeo [facility] Start: 02-11-2023 End: 02-11-2023 ambulatory MINDI JORGENSEN Not Available Start: 2021 End: 2021 ambulatory Lora Elvie Other [employer] Other Start: 2021 Office outpatient vi sit 25 minutes Lora Bermeo [facility] Start: 05-22-2021 End: 05-22-[address] BIN DUMONT Facility:[facility] Start: 10-07-2020 End: 10-07-[address] BIN DUMONT Facility:[facility] Start: 10-05-2020 End: 10-05-2020 ambulatory JOSE COX Facility:[facility] Plan of Treatment Date Care Activity Detail Author Start: 01-07-2024 End: 01-07-2024 Patient encounter procedure 01/07/2024 2:00 PM EST Office Visit [facility] [address] [place] [address] Mindi Jorgensen, HUMAN ANATOMY TEACHER [address] [place] [id number] MELVINA GAGE Start: 11-26-2023 End: 11-26-2023 Patient encounter procedure 11/26/2023 2:40 PM EDT Office Visit [facility] [address] [place] [address] Mindi Jorgensen, CLAY [address] [place] [address] Morbid (severe) obesity due to excess calories (CMS/HCC); Body mass index (BMI) 50.0-59.9, adult (CMS/HCC) [facility] Comment on above: Morbid (severe) obes ity due to excess calories (CMS/HCC); Body mass index (BMI) 50.0-59.9, adult (CMS/HCC) Start: 11-26-2023 End: 11-25-2024 CBC W Auto Differential panel - Blood CBC and differential Lab Routine Tobacco user Polydipsia Expected: 11/26/2023 (Approximate), Expires: 11/25/2024 [facility] Work Phone: Comment on above: Expected: 11/26/2023 (Approximate), Expires: 11/25/2024 Start: 11-26-2023 End: 11-25-2024 Comprehensive metabolic 2000 panel - Serum or Plasma Comprehensive metabolic panel Lab Routine Morbid (severe) obesity due to excess calories (CMS/HCC) Body mass index (BMI) 50.0-59.9, adult (CMS/HCC) Polydipsia Expected: 11/26/2023 (Approximate), Expires: 11/25/2024 [facility] Comment on above: Expected: 11/26/2023 (Approximate), Expires: 11/25/2024 Start: 11-26-2023 End: 11-25-2024 Hemoglobin A1c/Hemoglobin.total in Blood Hemoglobin A1c Lab Routine Polydipsia Expected: 11/26/2023 (Approximate), Expires: 11/25/2024 [facility] Comment on above: Expected: 11/26/2023 (Approximate), Expires: 11/25/2024 Start: 11-26-2023 End: 11-25-2024 Lipid 1996 panel - Serum or Plasma Lipid panel Lab Routine Morbid (severe) obesity due to excess calories (CMS/HCC) Expected: 11/26/2023 (Approximate), Expires: 11/25/2024 [facility] Comment on above: Expected: 11/26/2023 (Approximate), Expires: 11/25/2024 Start: 11-26-2023 End: 11-25-2024 Thyrotropin [Units/volume] in Serum or Plasma TSH Lab Routine Morbid (severe) obesity due to excess calories (CMS/HCC) Expected: 11/26/2023 (Approximate), Expires: 11/25/2024 [facility] Comment on above: Expected: 11/26/2023 (Approximate), Expires: 11/25/2024 Start: 11-26-2023 End: 11-25-2024 Thyroxine (T4) free [Mass/volume] in Serum or Plasma T4, free Lab Routine Morbid (severe) obesity due to excess calories (CMS/HCC) Expected: 11/26/2023 (Approximate), Expires: 11/25/2024 [facility] Comment on above: Expected: 11/26/2023 (Approximate), Expires: 11/25/2024 Start: 11-26-2023 End: 11-25-2024 Urinalysis complete panel - Urine Urinalysis with reflex microscopic (clean catch) Lab Routine Tobacco user Expected: 11/26/2023 (Approximate), Expires: 11/25/2024 [facility] Comment on above: Expected: 11/26/2023 (Approximate), Expires: 11/25/2024 Start: 11-01-2023 Influenza vaccination Influenza Vacc ine (#1) [facility] Immunizations Immunization Date Immunization Notes Care Provider Fiordaliza argueta 12-20-2002 hepatitis B vaccine, pediatric or pediatric/adolescent dosage Mindi Aichholz HUMAN ANATOMY TEACHER Work Phone: [facility] 11-15-2002 diphtheria, tetanus toxoids and acellular pertussis vaccine, unspecified formulation Mindi Aichholz HUMAN ANATOMY TEACHER Work Phone: [facility] 11-15-2002 hepatitis B vaccine, pediatric or pediatric/adolescent dosage Mindi Aichholz HUMAN ANATOMY TEACHER Work Phone: [facility] 11-15-2002 measles, mumps and rubella virus vaccine Mindi Aichholz HUMAN ANATOMY TEACHER Work Phone: [facility] 02-21-1996 haemophilus influenz ae type b vaccine, conjugate unspecified formulation Mindi Aichholz HUMAN ANATOMY TEACHER Work Phone: [facility] 02-21-1996 measles, mumps and rubella virus vaccine Mindi Aichholz HUMAN ANATOMY TEACHER Work Phone: [facility] 04-13-1995 diphtheria, tetanus toxoids and acellular pertussis vaccine, unspecified formulation Mindi Aichholz HUMAN ANATOMY TEACHER Work Phone: [facility] 04-13-1995 hepatitis B vaccine, pediatric or pediatric/adolescent dosage Mindi Aichholz HUMAN ANATOMY TEACHER Work Phone: [facility] 04-13-1995 poliovirus vaccine, unspecified formulation Mindi Aichholz HUMAN ANATOMY TEACHER Work Phone: [facility] 04-28-1991 diphtheria, tetanus toxoids and acellular pertussis vaccine, unspecified formulation Mindi Aichholz HUMAN ANATOMY TEACHER Work Phone: [facility] 04-28-1991 haemophilus influenz ae type b vaccine, conjugate unspecified formulation Mindi Aichholz HUMAN ANATOMY TEACHER Work Phone: [facility] 02-09-1991 diphtheria, tetanus toxoids and acellular pertussis vaccine, unspecified formulation Mindi Aichholz HUMAN ANATOMY TEACHER Work Phone: [facility] 02-09-1991 haemophilus influenz ae type b vaccine, conjugate unspecified formulation Mindi Aichholz HUMAN ANATOMY TEACHER Work Phone: [facility] 02-09-1991 poliovirus vaccine, unspecified formulation Mindi Aichholz HUMAN ANATOMY TEACHER Work Phone: [facility] 1990 diphtheria, tetanus toxoids and acellular pertussis vaccine, unspecified formulation Mindi Aichholz HUMAN ANATOMY TEACHER Work Phone: [facility] 1990 haemophilus influenz ae type b vaccine, conjugate unspecified formulation Mindi Aichholz HUMAN ANATOMY TEACHER Work Phone: [facility] 1990 poliovirus vaccine, unspecified formulation Mindi Aichholz HUMAN ANATOMY TEACHER Work Phone: [facility] Payers Date Payer Category Payer [facility] Care O (unspecified) AETNA AETNA [id number] 2023-Present [address] [place] [address] HMO [id number] 2023 Private Health Insurance [id number] 2022 Private Health Insurance ANISA MESSER [id number] 2022-Present [address] [place]ANDO [id number] [id number] 2022 Private Health Insurance [id number] 1990 Unknown [id number] 1990 Unknown [id number] 1990 Unknown [id number] 1990 Unknown [id number] 1990 Unknown [id number] 1959 Self-pay 1959 Unknown [id number] [facility] [id number] Unknown [id number] Social History Date Type Detail Facility Start: 02-11-2023 End: 11-26-[address] [facility] [employer] [facility] Start: 07-20-[address] [facility] Never smoked tobacco (finding) [facility] Start: 1990 Sex Assigned At Male [facility] Start: 02-11-2023 [facility] History of tobacco use Cigarette Smoker [facility] Start: 02-11-2023 Tobacco use and exposure Smokeless tobacco non-user [facility] Start: 02-11-2023 End: 11-26-2023 Alcoholic beverage intake Current drinker of alcohol (finding) [facility] Start: 02-11-2023 End: 11-26-2023 History of Social function [facility] Start: 02-08-2023 Alcohol Comment 3-4 drinks mon thly or less, 1-2 cups per day tea,soda [facility] Start: 1990 Sex assigned at Not on file [facility] Start: 05-14-2022 Gender identity Identifies as male gender (finding) [facility] Start: 05-16-2024 Sex Male (finding) [facility] History of Present illness Narrative 11-26-2023 Mindi Jorgensen NP - 11/26/2023 4:03 PM Ofelia Jorgensen NP - 11/26/2023 4:03 PM Ofelia Jorgensen NP - 11/26/2023 3:30 PM Ofelia Jorgensen NP - 11/26/2023 2:40 PM EDT Note Date & Type Note Facility 11-26-2023 History of Presen t illness Narrative Associated Problem(s): Anxiety and depression (CMS/HCC) Prefers to stay off fluoxetine Cont counseling Associated Problem(s): Morbid (severe) obesity due to excess calories (CMS/HCC) Will see with insurance if has coverage for wegovy Associated Problem(s): Migraine headache (CMS/HCC) Samples: Qlipta 60mg, lot [id number], exp 01/24 #2, and Ubrelvey 100mg #2 samples lot: [id number], exp 11/24 Co pay cards given Not taking any current meds for this, explained how these meds work Has trialed b skyler, topamax, and CGRP injection in the past -injection helped but cost too much Fu in 6 weeks Images from the original note were not included. Benji Cox is a 33 y.o. male presents with chief complaint of No chief complaint on file. HPI: Obesity: struggling with weight, this is his heaviest weight at 361lbs, his HS graduation weight 220 Lbs He has difficulty with healthy eating d/t his work schedule, does have concern about possible diabetes as he does have polydipsia. Has tried low fat diets, exercise, portion control, cutting back carbs. Still struggles to loose weight. Does have anxiety: not really taking any meds regularly, does go to counseling weekly which helps. 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 The current episode started more than 1 year ago. The problem occurs intermittently. The problem has been waxing and waning. The pain is located in the Left unilateral region. The pain does not radiate. The pain quality is similar to prior headaches. The quality of the pain is described as aching and throbbing. The pain is moderate. Associated symptoms include blurred vision, phonophobia, photophobia and vomiting. Pertinent negatives include no abdominal pain, dizziness, ear pain, eye pain, scalp tenderness, seizures or swollen glands. Nothing aggravates the symptoms. He has tried triptans (topamax) for the symptoms. The treatment provided mild relief. His past medical history is significant for migraine headaches and obesity. SUBJECTIVE: MEDICATIONS: Current Outpatient Medications Medication Instructions albuterol HFA 90 mcg/act inhaler 2 puffs, Inhalation, Every 6 hours PRN FLUoxetine (PROZAC) 10 mg, Oral, Daily Qulipta 60 mg, Oral, Daily SUMAtriptan (IMITREX) 50 mg, Oral, Once as needed, May repeat dose once in 2 hours if no relief. Do not exceed 2 doses in 24 hours. topiramate (TOPAMAX) 25 mg, Oral, 2 times daily Ubrelvy 100 mg, Oral, Daily PRN, May take 1 at onset of migraine BERG, may repeat again in 2 hours if needed. No more than 2 pills in 24 hours ALLERGIES: Allergies Allergen Reactions Other ALLERGY TO BANANAS REVIEW OF SYMPTOMS: Review of Systems Constitutional: Positive for fatigue. Negative for activity change, appetite change and unexpected weight change. HENT: Negative for ear pain, nosebleeds, sneezing, trouble swallowing and voice change. Eyes: Positive for blurred vision and photophobia. Negative for pain, discharge and visual disturbance. Respiratory: Negative for apnea, chest tightness and wheezing. Cardiovascular: Negative for leg swelling. Gastrointestinal: Positive for vomiting. Negative for abdominal distention, abdominal pain, blood in stool, constipation and diarrhea. Genitourinary: Negative for decreased urine volume, difficulty urinating, dysuria and hematuria. Skin: Negative for color change. Neurological: Positive for headaches. Negative for dizziness, tremors and seizures. Psychiatric/Behavioral: Negative for agitation, decreased concentration, hallucinations, self-injury and suicidal ideas. The patient is nervous/anxious. Hematological: Negative for adenopathy. Does not bruise/bleed easily. Endocrine: Positive for polydipsia. Negative for cold intolerance, heat intolerance and polyuria. Allergic/Immunologic: Negative for environmental allergies and food allergies. PAST MEDICAL HISTORY Past Medical History: Diagnosis Date Anxiety and depression ([facility]) Chronic heel pain, left Class 3 severe obesity without serious comorbidity with body mass index (BMI) of 50.0 to 59.9 in adult ([facility]) 02/11/2023 COVID History of medical problems Never officially dx - asthma as child Kidney stone 02/05/2023 Migraine headache ([facility]) Tobacco user History reviewed. No pertinent surgical history. family history includes Cancer in an other family member; Diabetes in his paternal grandfather and another family member; Heart disease in his paternal grandfather; Hypertension in his paternal grandfather and another family member; Thyroid disease in his mother. OBJECTIVE: Visit Vitals BP 136/88 (BP Location: Left arm, Patient Position: Sitting, BP Cuff Size: Large adult long) Pulse 87 Temp 98.5 F (Temporal) Resp 19 Ht 5' 11 Wt 361 lb 3.2 oz SpO2 96% BMI 50.38 kg/m Smoking Status Every Day BSA 2.87 m Physical Exam Vitals and nursing note reviewed. Constitutional: Appearance: Normal appearance. HENT: Head: Normocephalic. Right Ear: Tympanic membrane, ear canal and external ear normal. Left Ear: Tympanic membrane, ear canal and external ear normal. Nose: Nose normal. No congestion or rhinorrhea. Mouth/Throat: Mouth: Mucous membranes are moist. Pharynx: Oropharynx is clear. Eyes: Extraocular Movements: Extraocular movements intact. Conjunctiva/sclera: Conjunctivae normal. Pupils: Pupils are equal, round, and reactive to light. Cardiovascular: Rate and Rhythm: Normal rate and regular rhythm. Pulses: Normal pulses. Heart sounds: Normal heart sounds. Pulmonary: Effort: Pulmonary effort is normal. Breath sounds: Normal breath sounds. Abdominal: General: Bowel sounds are normal. Palpations: Abdomen is soft. Musculoskeletal: Cervical back: Neck supple. Right lower leg: No edema. Left lower leg: No edema. Lymphadenopathy: Cervical: No cervical adenopathy. Skin: General: Skin is warm and dry. Capillary Refill: Capillary refill takes 2 to 3 seconds. Neurological: General: No focal deficit present. Mental Status: He is alert. Cranial Nerves: No cranial nerve deficit. Psychiatric: Mood and Affect: Mood normal. Behavior: Behavior normal. Thought Content: Thought content normal. Judgment: Judgment normal. ASSESSMENT AND PLAN: Follow up in about 6 weeks (around 01/07/2024). Problem List Items Addressed This Visit Anxiety and depression ([facility]) Prefers to stay off fluoxetine Cont counseling Migraine headache ([facility]) - Primary Samples: Qlipta 60mg, lot [id number], exp 01/24 #2, and Ubrelvey 100mg #2 samples lot: [id number], exp 11/24 Co pay cards given Not taking any current meds for this, explained how these meds work Has trialed b skyler, topamax, and CGRP injection in the past -injection helped but cost too much Fu in 6 weeks Relevant Medications Atogepant (Qulipta) 60 MG tablet Ubrogepant (Ubrelvy) 100 MG tablet Tobacco user Relevant Orders CBC and differential Urinalysis with reflex microscopic (clean catch) Morbid (severe) obesity due to excess calories ([facility]) Will see with insurance if has coverage for wegovy Relevant Orders Comprehensive metabolic panel Lipid panel TSH T4, free Body mass index (BMI) 50.0-59.9, adult ([facility]) Relevant Orders Comprehensive metabolic panel Polydipsia Relevant Orders CBC and differential Comprehensive metabolic panel Hemoglobin A1c documented in this encounter [facility] Evaluation note 03-27-2023 Note Date & Type [...] no improvement in 5 to 7 days. [employer] Other Evaluation note 2021 Note Date & [...] needed for nausea and vomiting. Consider taking [id number]-hqg nter Imodium as needed for diarrhea. Follow-up with your family physician if no improvement in 2 to 3 days. Off work today and tomorrow Aug, Diarrhea, unspecified type (ICD-10 - R19.7) [employer] Other Clinical Note 05-22-2021 Note Date & [...] by: CAROLINE KENDRICK Date: 2021-05-22 13:53 [facility] Evaluation note Note Date & Type Note Facility Evaluation note No assessment information [facility] Work Phone: Evaluation note Note Date & Type Note Facility Evaluation note Diagnosis Migraine without aura and without status migrainosus, not intractable (CMS/HCC)- Primary Morbid (severe) obesity due to excess calories (CMS/HCC) Body mass index (BMI) 50.0-59.9, adult (CMS/HCC) Anxiety and depression (CMS/HCC) Tobacco user Tobacco use disorder Polydipsia documented in this encounter [facility] History general Narrative - Reported Note Date & Type Note Facility History general Narrative - Reported Type Medical History Migraine headache [employer] Other Summary Purpose Family History No Family History Records FoundNo Family History Records FoundNo Family History Records FoundNo Family History Records Found Advance Directives Advance Directive Response Recorded Date/ Time Advance Directives No April 02, 2023 2:28pm Chief Complaint and Reason for Visit Chief Complaint right ear pain Chief Complaint Admit Date cough, congestion May 16, 2024 1:5 9pm Additional Source Comments (unrecognized sect ion and content) No Status Records FoundNo Status Records FoundNo Status Records FoundNo Status Records Found INFORMATION SOURCE (unrecogn ized section and content) DATE CREATED AUTHOR 05/23/2021 [facility] DATE CREATED AUTHOR AUTHOR'S ORGANIZ ATION 02/13/2023 [facility] EPIC DATE CREATED AUTHOR AUTHOR'S ORGANIZ ATION 04/03/2023 [facility] DATE CREATED AUTHOR AUTHOR'S ORGANIZ ATION 02/25/2024 [facility] REASON FOR VISIT (unrecogniz ed section and content) 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, 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, 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 S TOOL, FATIGUE, CHILLS, FEVERSHOULDER PAIN Care Teams (unrecognized sec tion and content) Team Status: Active Member Role Status Dates Bin Dumont JR DO Primary Care Provider Active Team Status: Inactive Member Role Status Dates Bin Dumont JR DO Primary Care Provider Active Start: July 20, 2023 End: July 20, 2023 Ree Mcdermott APRN Attending Provider Active S tart: July 20, 2023 End: July 20, 2023 [employer]ile [employer] Relationship Specialty Start Date End Date Rick Villalobos MD [address] [place] [id number] PCP - General Family Medicine 11/23/23 Mindi Jorgensen NP [address] [place] [id number] Nurse Practitioner Family Medicine 11/30/22 [employer] Bro[employer] Relationship Specialty Start Date End Date Rick Villalobos MD [address] [place] [address] PCP - General Family Medicine 11/23/23 [place] [address] Nurse Practitioner Family Medicine 11/30/22 Team Status: Inactive Member Role Status Dates Bin Dumont JR DO Primary Care Provider Active Start: May 16, 2024 End: May 16, 2024 Melany Alonso APRN Attending Provider Active Start: May 16, 2024 End: May 16, 2024 Goals (unrecognized section and content) Goals may be documented in a n alternate section FOR RECORDS PERTAINING TO PATIENTS WHO ARE [...] BE BASED ON THE PRIMARY CLINICAL RECORDS. [employer] provides no warranty or guarantee of the accuracy or completeness of information in this document.
--- NOTE | 2024-05-20 08:41 | ED_ITS ---
HPI HPI - General Adult General Chief complaint: Upper Respiratory Infection Stated complaint: COUGH, FEVER, CHILLS Time Seen by Provider: 05/20/24 08:23 Mode of arrival: walk-in History of Present Illness HPI narrative: The patient is reporting at least 3 weeks of being sick mostly coughing and having phlegm, the patient was already evaluated almost 3 days ago after he had been having 2 weeks before that with the cough. The patient was already treated with antibiotic and steroid that he almost finished with no improvement He denies any nausea vomiting at the moment he also denies any decreased p.o. intake but he has been having a cough and fever No chest pain Related Data Home Medications ?Medication ?Instructions ?Recorded ?Confirmed fluoxetine 10 mg capsule mg 01/31/23 sumatriptan succinate 50 mg tablet mg PO 01/31/23 topiramate 25 mg tablet mg 01/31/23 Previous Rx's ?Medication ?Instructions ?Recorded amoxicillin 875 mg-potassium 1 tab PO Q12H #20 tabs 07/21/23 clavulanate 125 mg tablet hydrocodone 5 mg-acetaminophen 325 1 tab PO Q6H PRN pain 3 days #12 07/21/23 mg tablet tabs ketorolac 10 mg tablet 10 mg PO TID PRN pain #10 tabs 07/21/23 amoxicillin 875 mg-potassium 1 tab PO BID #14 tabs 05/17/24 clavulanate 125 mg tablet azithromycin 250 mg tablet See Rx Instructions PO .COMPLEX #6 05/17/24 (Zithromax Z-Ramu) tabs prednisone 50 mg tablet 50 mg PO DAILY 5 days #5 tabs 05/17/24 dextromethorphan-guaifenesin 10 10 ml PO Q6H PRN cough #237 mL 05/20/24 mg-100 mg/5 mL oral syrup Allergies Allergy/AdvReac Type Severity Reaction Status Date / Time bananas Allergy Severe Uncoded 01/31/23 05:37 Opioid HPI Opioid Management Most Recent Opioid Data: No Data to Display Review of Systems ROS Status of ROS 10 or more systems reviewed and unremark able except as noted in history and below [facility] PFS Social History Smoking status: Current some day smoker Little interest or pleasure in doing things: not at all Feeling down, depressed, or hopeless: not at all Exam Narrative Exam Narrative: Nurses notes and vital signs reviewed and patient is not hypoxic. General: Well-appearing and in no apparent distress. Skin: Warm, dry, no pallor noted. No rash. Head: Normocephalic, atraumatic. Neck: Supple, non-tender. Cardiovascular: Regular Rate and Rhythm without murmur, gallop or rub. Respiratory: No accessory muscle use or respiratory distress. Lungs are clear to auscultation, no wheezing, rales or rhonchi Chest Wall: no tenderness Back: No midline thoracic or lumbar vertebral tenderness. No CVA tenderness Musculoskeletal: normal ROM, no calf or popliteal tenderness, no lower extremity edema/swelling GI: Abdomen is soft, non-distended. Normal bowel sounds. No masses appreciated. No tenderness to palpation. No rebound, guarding, or rigidity noted. Neurological: A&O x4. No cranial nerve dysfunction observed. No truncal ataxia. Moves all extremities. Sensation intact. Psychiatric: Cooperative and interactive. Normal mood and affect. Constitutional Vital Signs, click to edit/add: Last Vital Signs Temp 100.1 F 05/20/24 10:36 Pulse 97 H 05/20/24 10:36 Resp 18 05/20/24 10:36 BP 145/77 H 05/20/24 10:36 Pulse Ox 96 05/20/24 10:36 O2 Del Method Room Air 05/20/24 10:36 Course Vital Signs Vital signs: Vital Signs Temperature 99.1 F 05/20/24 08:16 Pulse Rate 119 H 05/20/24 08:16 Respiratory Rate 18 05/20/24 08:16 Blood Pressure 145/91 H 05/20/24 08:16 Pulse Oximetry 97 05/20/24 08:16 Oxygen Delivery Method Room Air 05/20/24 08:16 Temperature 100.1 F 05/20/24 10:36 Pulse Rate 97 H 05/20/24 10:36 Respiratory Rate 18 05/20/24 10:36 Blood Pressure 145/77 H 05/20/24 10:36 Pulse Oximetry 96 05/20/24 10:36 Oxygen Delivery Method Room Air 05/20/24 10:36 Medical Decision Making MDM Narrative Medical decision making narrative: The patient EKG in the ER showing some sinus tachycardia with a heart rate of 113 CBC shows no leukocytosis chemistry shows no acute pathology Lactic is not elevated Chest x-ray showed no acute pathology as well flu test showed that he is influenza A positive 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 The patient agrees with the following Diagnosis and Treatment plan and the patient will be discharged home. Lab Data Labs: Lab Results 05/20/24 05/20/24 05/20/24 Range/Units 08:28 08:40 08:47 WBC 8.2 (4.0-11.0) 10^3/uL RBC 5.52 (4.70-6.10) 10^6/uL Hgb 15.6 (14.0-18.0) g/dL Hct 47.0 (42.0-54.0) % MCV 85.1 (80.0-94.0) fL MCH 28.3 (25.9-34.0) pg MCHC 33.2 (29.9-35.2) g/dL RDW 13.3 (11.0-15.0) % Plt Count 255 (150-450) 10^3/uL MPV 10.2 (9.5-13.5) fL Neut % (Auto) 58.6 (43.0-75.0) % Lymph % (Auto) 26.6 (20.5-60.0) % [place] % (Auto) 13.2 H (1.7-12.0) % Eos % (Auto) 0.9 (0.9-7.0) % Baso % (Auto) 0.5 (0.2-2.0) % Neut # (Auto) 4.8 (1.4-6.5) 10^3/uL Lymph # (Auto) 2.2 (1.2-3.8) 10^3/uL [place] # (Auto) 1.1 H (0.3-0.8) 10^3/uL Eos # (Auto) 0.1 (0.0-0.7) 10^3/uL Baso # (Auto) 0.0 (0.0-0.1) 10^3/uL Abs Immat Gran (auto) 0.02 (0.00-0.03) 10^3/uL Imm/Tot Granulo (auto) 0.2 (0.0-0.5) % D-Dimer 0.32 (<=0.59) mg/L FEU Sodium 137 (136-145) mmol/L Potassium 3.7 (3.5-5.1) mmol/L Chloride 105 (98-107) mmol/L Carbon Dioxide 24.7 (21.0-32.0) mmol/L Anion Gap 11.0 BUN 17.0 (7.0-18.0) mg/dL Creatinine 1.11 (0.70-1.30) mg/dL Est GFR ( Amer) >60 (>=60 mL/min/1.73m^2) Est GFR (Non-Af Amer) >60 (>=60 mL/min/1.73m^2) BUN/Creatinine Ratio 15.3 Glucose 102 (74-106) mg/dL Lactate 1.9 (0.4-2.0) mmol/L Calcium 8.5 (8.5-10.1) mg/dL Total Bilirubin 0.4 (0.2-1.0) mg/dL AST 29 (15-37) U/L ALT 47 (16-63) U/L Alkaline Phosphatase 81 (46-116) U/L Troponin I High Sens 4.9 (4.0-76.1) pg/mL NT-Pro-B Natriuret Pep 14.0 (<=450.0) pg/mL Total Protein 7.0 (6.4-8.2) g/dL Albumin 3.4 (3.4-5.0) g/dL Globulin 3.6 g/dL Albumin/Globulin Ratio 0.9 Influenza Type A Ag Positive A Influenza Type B Ag Negative SARS-CoV-2 Ag (CV2AG) Negative (NEGATIVE) POC Glucose 99 (74-106) mg/dL Discharge Plan Discharge Chief Complaint: Upper Respiratory Infection Clinical Impression: Flu Patient Disposition: Home, Self-Care Time of Disposition Decision: 10:28 Condition: Good Prescriptions / Home Meds: New dextromethorphan-guaifenesin 10-100 mg/5 mL syrup 10 ml PO Q6H PRN (Reason: cough) Qty: 237 0RF Discontinued benzonatate 100 mg capsule 100 mg PO TID PRN (Reason: cough) Qty: 20 0RF No Action prednisone 50 mg tablet 50 mg PO DAILY 5 Days Qty: 5 0RF azithromycin [Zithromax Z-Ramu] 250 mg tablet See Rx Instructions .ROUTE .COMPLEX Qty: 6 0RF Rx Instructions: For 250 mg dose pack: take 500 mg today (day 1), then 250 mg for 4 days (days 2-5) amoxicillin-pot clavulanate 875-125 mg tablet 1 tab PO BID Qty: 14 0RF sumatriptan succinate 50 mg tablet PO topiramate 25 mg tablet fluoxetine 10 mg capsule hydrocodone-acetaminophen 5-325 mg tablet 1 tab PO Q6H PRN (Reason: pain) 3 Days Qty: 12 0RF Rx Instructions: DX: H92.01 ketorolac 10 mg tablet 10 mg PO TID PRN (Reason: pain) Qty: 10 0RF amoxicillin-pot clavulanate 875-125 mg tablet 1 tab PO Q12H Qty: 20 0RF Print Language: Yoruba Instructions: Influenza (DC) Referrals: Mindi Jorgensen ENVIRONMENTAL HEALTH SPECIALIST [Primary Care Provider] - 1 week Discharge Date/Time: 05/20/24 10:50
[2024-05-20 08:47] LABS: Basophils Percent Auto 0.5 % (0.2-2.0); Eosinophils Absolute Auto 0.1 10^3/uL (0.0-0.7); Eosinophils Percent Auto 0.9 % (0.9-7.0); Hemoglobin 15.6 g/dL (14.0-18.0); Immature Granulocytes Abs Auto 0.02 10^3/uL (0.00-0.03); Immature Granulocytes Pct Auto 0.2 % (0.0-0.5); Lymphocytes Absolute Auto 2.2 10^3/uL (1.2-3.8); Lymphocytes Percent Auto 26.6 % (20.5-60.0); Mean Corpuscular HGB Conc 33.2 g/dL (29.9-35.2); Mean Corpuscular Hemoglobin 28.3 pg (25.9-34.0); Mean Corpuscular Volume 85.1 fL (80.0-94.0); Mean Platelet Volume 10.2 fL (9.5-13.5); Monocytes Absolute Auto 1.1 10^3/uL (0.3-0.8); Monocytes Percent Auto 13.2 % (1.7-12.0); Neutrophils Absolute Auto 4.8 10^3/uL (1.4-6.5); Neutrophils Percent Auto 58.6 % (43.0-75.0); Platelet Count 255 10^3/uL (150-450); Red Blood Count 5.52 10^6/uL (4.70-6.10); Red Cell Distribution Width 13.3 % (11.0-15.0); White Blood Count 8.2 10^3/uL (4.0-11.0)
[2024-05-20 08:49] LABS: Glucometer 99 mg/dL (74-106)
[2024-05-20 08:52] LABS: Influenza Virus A Antigen Positive; Influenza Virus B Antigen Negative; Internal Control Within Normal Limits; SARS-CoV-2 Ag NEGATIVE (NEGATIVE)
[2024-05-20 09:04] LABS: Alanine Aminotransferase 47 U/L (16-63); Albumin Globulin Ratio 0.9; Albumin Level 3.4 g/dL (3.4-5.0); Alkaline Phosphatase 81 U/L (46-116); Aspartate Amino Transferase 29 U/L (15-37); BUN Creatinine Ratio 15.3; Bilirubin Total 0.4 mg/dL (0.2-1.0); Calcium 8.5 mg/dL (8.5-10.1); Carbon Dioxide 24.7 mmol/L (21.0-32.0); Chloride 105 mmol/L (98-107); Estimated GFR (African America >60 (>=60 mL/min/1.73m^2); Estimated GFR (Non-African Ame >60 (>=60 mL/min/1.73m^2); Globulin 3.6 g/dL; Glucose 102 mg/dL (74-106); Potassium 3.7 mmol/L (3.5-5.1); Sodium 137 mmol/L (136-145)
[2024-05-20 09:06] LABS: Lactate/Lactic Acid 1.9 mmol/L (0.4-2.0)
[2024-05-20 09:11] LABS: Troponin I High Sensitivity 4.9 pg/mL (4.0-76.1)
[2024-05-20 09:16] LABS: D Dimer 0.32 mg/L FEU (<=0.59)
[2024-05-20] MEDS: 0.9 % SODIUM CHLORIDE 1,000 ML 1000 ML IV (09:21)
[2024-05-20 09:55] VITALS: TEMP 37.4
[2024-05-20] MEDS: ACETAMINOPHEN 325 MG TABLET 650 MG PO (10:02)
[2024-05-20 10:36] VITALS: BP 145/77; PULSE 97; TEMP 37.8; O2SAT 96
== END 2024-05-20 10:50 | disposition home or self-care (01) ==
PROVIDERS: Emergency Provider Emergency Medicine; PCP Nurse Practitioner
DX: J10.1 Influenza due to other identified influenza virus with other respiratory manifestations (principal); F17.200 Nicotine dependence, unspecified, uncomplicated; R50.9 Fever, unspecified
CPT/HCPCS: 36415; 71045; 80053; 83605; 83880; 84484; 85025; 85378; 87804; 87811; 93005; 99285